=== PATIENT | female | born 1995 | race Caucasian/White ===

== ENCOUNTER 2017-03-26 13:23 | Emergency (ER) | payer SELFPAY ==
[~2017-03-26] VITALS: Ht 154.9 cm; Wt 49.4 kg
[~2017-03-26 13:23] MED LIST: IRON65TA11 PO; PREN-385 PO
[2017-03-26 14:00] VITALS: BP 109/58
--- NOTE | 2017-03-26 15:09 | NUR ---
AMBULATED TO ER BED 8
--- NOTE | 2017-03-26 15:11 | NUR ---
21/F PRESENT TO ER C/O SORE THROAT x 2 DAYS. PAIN 5/10 ACHING NON-RADIATING. PT STATES THAT SHE HAS COLD SYMPTOMS FOR 3 DAYS NOW. AAOx4, PERRLA, BREATHING EVEN AND EFFORTLESS. ERMD NOTIFIED OF PATIENT STATUS.
--- NOTE | 2017-03-26 15:15 | NUR ---
Patient being evaluated by physician at bedside.
[2017-03-26 15:47] VITALS: BP 111/62
== END 2017-03-26 15:47 | disposition home or self-care (01) ==
LOC: MED 13:23
DX: J03.90 Acute tonsillitis, unspecified (principal); Z79.899 Other long term (current) drug therapy
CPT/HCPCS: 99283

== ENCOUNTER 2018-01-07 12:48 | Emergency (ER) | payer MEDICAID ==
[~2018-01-07] VITALS: Ht 154.9 cm; Wt 50.3 kg
[~2018-01-07 12:48] MED LIST changes: +FERR-252 PO; -IRON65TA11 PO
[2018-01-07 13:05] VITALS: BP 100/63
--- NOTE | 2018-01-07 13:11 | NUR ---
gave report to Rikki URIAS
--- NOTE | 2018-01-07 13:11 | NUR ---
PT PROVIDES URINE SAMPLE THEN AMBULATES TO BED 11
[2018-01-07 13:59] LABS: APPEARANCE,URINE CLEAR (CLEAR); BILIRUBIN,URINE NEGATIVE (NEGATIVE); BLOOD, URINE NEGATIVE (NEGATIVE); COLOR,URINE YELLOW (YELLOW); LEUKOCYTE ESTERASE ,URINE NEGATIVE (NEGATIVE); NITRITE, URINE NEGATIVE (NEGATIVE); UGLUCOSE NEGATIVE (NEGATIVE)
--- NOTE | 2018-01-07 14:22 | NUR ---
FEMALE CHAPERONED FOR DR. GILL DURING PATIENT EXAM
--- NOTE | 2018-01-07 15:14 | NUR ---
US AT BEDSIDE
[2018-01-07 15:51] LABS: BASOPHILS % (AUTO) 0.2 % (0.0-2.0); EOSINOPHILS % (AUTO) 0.4 % (0.0-4.0); HEMOGLOBIN 12.5 g/dL (12.0-16.0); LYMPHOCYTES # (AUTO) 1.8 K/uL (2.5-16.5); LYMPHOCYTES % (AUTO) 40.8 % (20.5-51.1); MEAN CORPUSCULAR HEMOGLOBIN 31 pg (27-31); MEAN CORPUSCULAR HGB CONC 34 g/dL (33-37); MEAN CORPUSCULAR VOLUME 90.3 fL (80-94); MONOCYTES # (AUTO) 0.3 K/uL (0.8-1.0); MONOCYTES % (AUTO) 6.6 % (1.7-9.3); NEUTROPHILS # (AUTO) 2.2 K/uL (1.8-7.7); PLATELET COUNT (AUTO) 158 K/uL (140-450); RED BLOOD CELL COUNT(AUTO) 4.09 MIL/uL (4.20-5.40); RED CELL DISTRIBUTION WIDTH 12.9 % (11.6-13.7); WHITE BLOOD COUNT (AUTO) 4.3 K/uL (4.5-11.0)
--- NOTE | 2018-01-07 15:53 | NUR ---
PT IN BED USING CELL PHONE, RELZED, NO APPEARENT DISTRESS AT THIS TIME.
[2018-01-07 15:58] LABS: ANION GAP 10.4 (8-16); CARBON DIOXIDE 28.8 mmol/L (21-32); CREATININE 0.5 mg/dL (0.6-1.3); POTASSIUM 4.2 mmol/L (3.5-5.1)
[2018-01-07 16:04] LABS: ALBUMIN 3.7 g/dL (3.4-5.0); TOTAL BILIRUBIN 0.5 mg/dL (0.0-1.0)
[2018-01-07 16:44] VITALS: BP 105/78
--- NOTE | 2018-01-07 16:48 | NUR ---
Patient discharged with v/s stable. Written and verbal after care instructions given and explained. Patient verbalized understanding. Ambulatory with steady gait. All questions addressed prior to discharge. Advised to follow up with PMD.
== END 2018-01-07 16:48 | disposition home or self-care (01) ==
LOC: MED 12:48
DX: N94.89 Other specified conditions associated with female genital organs and menstrual cycle (principal)
CPT/HCPCS: 36415; 76830; 80053; 81003; 81025; 85025; 87086; 99285; Q0092

== ENCOUNTER 2022-02-15 19:19 | Emergency (ER) | payer OTHER ==
[~2022-02-15] VITALS: Ht 154.9 cm; Wt 49.9 kg
[2022-02-15 19:54] VITALS: BP 122/71
--- NOTE | 2022-02-15 19:57 | NUR ---
TO LOBBY A/W BED AMBULATORY
--- NOTE | 2022-02-15 22:03 | NUR ---
seen and examined by TANISHA.
[2022-02-15] MEDS ORDERED: IBUPROFEN 600 MG TAB PO ONE (22:10)
[2022-02-15] MEDS ORDERED: NAPR-54 PO (22:15)
[2022-02-15 22:18] VITALS: BP 120/78
--- NOTE | 2022-02-15 22:19 | NUR ---
Patient discharged with v/s stable. Written and verbal after care instructions given and explained. Patient alert, oriented and verbalized understanding of instructions. Ambulatory with steady gait. All questions addressed prior to discharge. ID band removed. Patient advised to follow up with PMD. Rx of NAPROSYN given. Patient educated on indication of medication including possible reaction and side effects. Opportunity to ask questions provided and answered. VSS, A/OX4, UNLABORED BREATYHING, AMBULATORY, AND CALM DEMEANOR.
== END 2022-02-15 22:20 | disposition home or self-care (01) ==
LOC: MED 19:19
DX: S63.610A Unspecified sprain of right index finger, initial encounter (principal); Z79.899 Other long term (current) drug therapy; Y04.0XXA Assault by unarmed brawl or fight, initial encounter; Y93.89 Activity, other specified; Y92.89 Other specified places as the place of occurrence of the external cause; Y99.8 Other external cause status
CPT/HCPCS: 73140; 99283